=== PATIENT | female | born 1945 | race Caucasian/White ===

== ENCOUNTER → 2019-01-20 20:16 | Outpatient (CLI) | payer MEDICARE, OTHER ==
[2014-09-16 09:38] VITALS: BMI 17.9
[~2019-01-20 20:16] MED LIST: BAYER CHEWABLE81 MG PO; CARAFATE1 G PO; COREG 3.1253.125 MG PO; LISINOPRIL2.5 MG PO; METHOTREXATE2.5 MG PO; NORCO 7.5/325 T1 TA1 PO; NORVASC5 MG PO; PLAQUENIL200 MG PO; PLAVIX75 MG PO; PRAVACHOL40 MG PO; PREDNISONE5 MG PO; PROTONIX40 MG PO; SYNTHROID88 MCG PO; ULTRAM50 MG PO
[2019-01-25 14:15] LABS: CRYPTOCOCCUS AG - SERUM Negative (Negative)
[2019-01-25 15:17] LABS: HISTOPLASMA GAL MANNAN AG SER <0.5 (<0.5 ng/mL)
[2019-01-25 16:11] LABS: ANGIOTENSIN CONVERTING ENZYME 62 U/L (14-82)
== END | disposition home or self-care (01) ==
LOC: D.LABREF 20:16
PROVIDERS: ATTEND Student in an Organized Health Care Education/Training Program
DX: J18.8 Other pneumonia, unspecified organism (principal)